=== PATIENT | female | born 1970 | race Caucasian/White ===

== ENCOUNTER 2023-02-05 07:25 | Emergency (ER) | payer MEDICAID ==
[2023-02-05] MEDS ORDERED: Clotrimazole 10 MG Troche PO ONE (07:52)
== END 2023-02-05 08:45 | disposition left against medical advice (07) ==
LOC: JP.ED 07:25
DX: J02.0 Streptococcal pharyngitis (principal); Z72.0 Tobacco use
CPT/HCPCS: 87880-QW; 99283

== ENCOUNTER 2025-03-13 09:22 | Emergency (ER) | payer MEDICAID | END 2025-03-13 10:45 | disposition home or self-care (01) | LOC: JP.ED 09:22 | DX: K04.7 Periapical abscess without sinus (principal); F17.210 Nicotine dependence, cigarettes, uncomplicated; Z79.899 Other long term (current) drug therapy | CPT/HCPCS: 99283 ==